=== PATIENT | female | born 1990 | race Caucasian/White ===

== ENCOUNTER 2021-03-08 21:15 | Outpatient (REF) | payer SELFPAY ==
[2021-03-08 21:51] LABS: Abs Immature Grans 0.24 10^3/uL (0.0-0.06); HCT 44.5 % (36.0-46.0); HGB 14.7 g/dL (11.2-15.7); MCH 27.4 pg (27.0-33.0); MPV 10.3 fL (8.0-11.0); Nucleated RBC 0 %; Platelet Count 283 10^3/uL (130-400); RBC 5.36 10^6/uL (3.93-5.22); RDW 14.2 % (11.7-14.6); RDW-SD 43.1 fL; WBC 11.24 10^3/uL (4.4-10.8)
[2021-03-08 22:38] LABS: ALT 981 U/L (14-59); AST 449 U/L (15-37); Albumin 3.6 g/dL (3.4-5.0); Alkaline Phosphatase 445 U/L (46-116); Anion Gap 12.1 mmol/L (3-11); BUN 12 mg/dL (7-18); CO2 24.9 mmol/L (21.0-32.0); CREATININE 0.8 mg/dL (0.55-1.02); Calcium 9.2 mg/dL (8.5-10.1); Chloride 104 mmol/L (98-107); Glucose 97 mg/dL (74-106); Lipase 106 U/L (73-393); Potassium 3.8 mmol/L (3.5-5.1); Sodium 141 mmol/L (136-145); Total Protein 7.7 g/dL (6.4-8.2)
[2021-03-08 22:40] LABS: Absolute Basophil Count 0.11 10^3/uL (0.0-0.2); Absolute Eosinophil Count 0.11 10^3/uL (0.0-0.7); Absolute Lymphocyte Count 6.52 10^3/uL (1.2-3.4); Absolute Monocyte Count 0.67 10^3/uL (0.1-0.8); Absolute Neutrophil Count 3.82 10^3/uL (1.2-6.7); Atypical Lymphocytes % 8; Bands % 2
[2021-03-08 22:41] LABS: Diff Comment Manual Differential; RBC Morphology Normal
[2021-03-12 11:04] LABS: Hepatitis A Antibody IgM Negative (Negative); Hepatitis B Core Antibody Negative (Negative); Hepatitis B surface Ag Negative (Negative); Hepatitis C Ab w Rflx HCV PCR Negative (Negative)
== END 2021-03-08 21:16 | disposition home or self-care (01) ==
LOC: LBN 21:15
PROVIDERS: Visit Provider Physician Assistant Medical
DX: R10.11 Right upper quadrant pain (principal); Z11.59 Encounter for screening for other viral diseases; Z01.84 Encounter for antibody response examination
CPT/HCPCS: 80053; 83690; 86704; 86709; 86803; 87340; 85025

== ENCOUNTER 2021-03-12 15:12 | Outpatient (REF) | payer SELFPAY ==
[2021-03-12 21:31] LABS: ALT 571 U/L (14-59); AST 221 U/L (15-37); Albumin 3.2 g/dL (3.4-5.0); Alkaline Phosphatase 424 U/L (46-116); Anion Gap 9.7 mmol/L (3-11); BUN 11 mg/dL (7-18); Bilirubin, Total 3.6 mg/dL (0.2-1.0); CO2 26.3 mmol/L (21.0-32.0); CREATININE 0.8 mg/dL (0.55-1.02); Calcium 8.9 mg/dL (8.5-10.1); Chloride 104 mmol/L (98-107); Glucose 101 mg/dL (74-106); Lipase 132 U/L (73-393); Sodium 140 mmol/L (136-145); Total Protein 7.4 g/dL (6.4-8.2)
== END 2021-03-12 15:13 | disposition home or self-care (01) ==
LOC: LBN 15:12
PROVIDERS: Visit Provider Physician Assistant Medical
DX: R74.01 Elevation of levels of liver transaminase levels (principal)
CPT/HCPCS: 80053; 83690

== ENCOUNTER 2022-11-22 14:03 | Emergency (ER) | payer SELFPAY ==
[2022-11-22 14:06] VITALS: BP 138/99; PULSE 85; RESP 18; TEMP 37; O2SAT 99
--- NOTE | 2022-11-22 14:06 | ED.GENADUL_ITS ---
Discharge Plan Disposition Patient Disposition: Home Discharge Details Clinical Impression: Immunization, tetanus-diphtheria, Laceration of left lower leg Primary Care Provider: None,None ED Provider: Roberto Bob Home Meds and New Rx's Prescriptions: No Action No Known Home Meds Discharge Instructions Additional Instructions: You were seen in the emergency department for your laceration. Your tetanus was updated. Please return to the emergency department if you develop streaking signs of infection fevers chills or any redness around your wound. For your pain please take medications as follows: 1. Take acetaminophen (Tylenol), 1,000 mg (two 500 mg tabs) every 6 hours 2. Take ibuprofen (Advil), 400 mg every 6 hours. Discharge Data Discharge Date/Time-TO BE ENTERED AT DEPARTURE: 11/22/22 15:01 Medical Decision Making This is an overall very well-appearing normothermic and not tachycardic 32-year-old female with superficial left lower extremity laceration that will allow to heal via secondary intention. No pain out of proportion to suggest necrotizing soft tissue infection. We will update patient's tetanus status. No streaking surrounding signs of cellulitis and no significant erythema so will defer prophylactic antibiotics at this point time. Patient and I discussed return indications including any fevers any worsening pain swelling or streaking signs of infection. I advised outpatient PCP follow-up as needed. I advised oral ibuprofen and acetaminophen. No preceding chest pain dizziness nor syncope so I do not feel that the patient requires ECG or labs. Given that the patient struck her leg on a metal bedpost I am not suspicious for retained foreign body so will defer plain film. Patient understood her return indications and will proceed with empiric trial of expectant outpatient management. No significant tenderness to the tibia and no significant trauma to tibia so we will defer plain films at this point time as my suspicion for acute osseous abnormality is exceedingly low. HPI General Date/Time Provider Initiated Documentation: 11/22/22 14:06 . HPI Narrative: This is a previously healthy 32-year-old female arriving via private vehicle in the setting of a left harden laceration she sustained last night. Patient reports that she was changing a bed. She was standing on some pillows and intermittently lost her balance. No preceding chest pain nausea vomiting nor dizziness. She struck her left harden on a metal frame. She came to the emergency department as she knows that her last tetanus was more than 10 years ago when she was with her daughter. She is not anticoagulated. She has been ambulatory since her injury. Related Data Home Medications Medication Instructions Recorded Confirmed Unknown [No Known Home Meds] 11/22/22 11/22/22 Allergies Allergy/AdvReac Type Severity Reaction Status Date / Time No Known Allergies Allergy Unverified 11/22/22 14:12 PFS All Active Problems (Updated 11/22/22 @ 14:33 by Roberto Bob MD) Vaginal delivery (Active 09/16/12) Immunization, tetanus-diphtheria (Acute) Laceration of left lower leg (Acute) Social History Smoking/Tobacco Use Status: Current every day Smoking risk assessment performed?: Yes Drug use: Daily Exam Narrative Exam Narrative: General: Well-appearing in no acute distress speaking in complete sentences. Head: Normocephalic, atraumatic. Eye: Extraocular eye movements intact. No conjunctival injection. No scleral icterus. Ear, nose, mouth, throat: Grossly normal inspection. Normal voice, handling secretions normally. Neck: Trachea midline. Cardiovascular: Well-perfused distal extremities. Respiratory: Nonlabored respiration. Gastrointestinal: Nondistended abdomen. Musculoskeletal: No edema. Moving all 4 extremities spontaneously. Normal lateral aspect of the patient's left lower leg approximately mid tibial level there is an approximately 2.5 cm superficial laceration that is hemostatic. No significant surrounding erythema. Laceration does not violate the subcutaneous tissue. Skin: Normal for age and race, grossly normal temperature and turgor. No acute rash. Neurologic: Alert and appropriate, no apparent acute deficits. Psychiatric: Mood and manner are appropriate. Grooming and personal hygiene are appropriate.
[2022-11-22] MEDS: Tetanus & Diphtheria Tox,ADULT 0.5 ML VIAL IM (14:55)
== END 2022-11-22 15:01 | disposition home or self-care (01) ==
PROVIDERS: Emergency Provider Emergency Medicine
DX: W22.03XA Walked into furniture, initial encounter; S81.812A Laceration without foreign body, left lower leg, initial encounter
CPT/HCPCS: 90471; 99284; 99283

== ENCOUNTER 2024-02-14 09:54 | Emergency (ER) | payer SELFPAY ==
[2024-02-14 10:00] VITALS: BP 163/98; PULSE 75; RESP 20; TEMP 36.7; O2SAT 98
--- NOTE | 2024-02-14 10:00 | DI.RAD_ITS ---
Exam(s) XR CHEST 2V PA LATERAL EXAM: XR CHEST 2V PA LATERAL CLINICAL HISTORY: cough. TECHNIQUE: 2D digital imaging was performed. COMPARISON: No exams were available for comparison FINDINGS: 2 views: Heart size is normal. The mediastinum is not widened. Lungs are clear. No infiltrates nor pleural effusions. IMPRESSION: No acute pulmonary findings. DATA REPOSITORY: RADIATION DOSE DELIVERED:
[2024-02-14 10:04] VITALS: BP 163/98; PULSE 75; RESP 20; TEMP 36.7; O2SAT 98
[2024-02-14] MEDS: Inhaler, Assist Device 1 EACH MC (10:23)
[2024-02-14] MEDS: Dexamethasone 4 MG TAB 8 MG PO (10:23)
[2024-02-14] MEDS: Albuterol HFA 8 GM 60 PUFF INH IH (10:23)
--- NOTE | 2024-02-14 10:44 | DI.VRAD_ITS ---
PROCEDURE INFORMATION: Exam: XR Chest Exam date and time: 02/14/2024 10:29 AM Age: 33 years old Clinical indication: Cough TECHNIQUE: Imaging protocol: Radiologic exam of the chest. Views: 2 views. COMPARISON: CT ABDOMEN W 03/09/2021 4:25 PM FINDINGS: Lungs: Unremarkable. No consolidation. Pleural spaces: Unremarkable. No pleural effusion. No pneumothorax. Heart/Mediastinum: Unremarkable. No cardiomegaly. Bones/joints: Mild degenerative disease of the left acromioclavicular joint. IMPRESSION: No acute cardiopulmonary process. Dictated and Authenticated by: Melo Mahoney MD. Ordering:[facility] Renzo Reed MD
--- NOTE | 2024-02-14 10:58 | ED.GENADUL_ITS ---
Discharge Plan Disposition Patient Disposition: Home Condition: Stable Discharge Details Clinical Impression: Cough, URI (upper respiratory infection), Otitis media Primary Care Provider: Unknown,Unknown ED Provider: Luiz Muller Home Meds and New Rx's Prescriptions: New amoxicillin 875 mg tablet 875 mg PO BID 5 Days Qty: 10 0RF promethazine 6.25 mg/5 mL syrup 12.5 mg PO Q6H PRN (Reason: cough) Qty: 120 0RF No Action ibuprofen 600 mg tablet 600 mg PO TID-QID PRN Discharge Instructions Instructions: Upper Respiratory Infection ED Additional Instructions: * Your COVID and flu testing are negative * You have an ear infection of the left ear, this will be treated with a ntibiotics * Use the albuterol and spacer provided every 4-6 hours as needed for cough * Prescription for cough medication has been sent to the pharmacy. This is the Phenergan syrup. It can make you sleepy which will help you get some rest HPI General Date/Time Provider Initiated Documentation: 02/14/24 09:59 . Limitations to Documentation: no limitations . Information obtained by: patient . HPI Narrative: 33-year-old female with past medical history of tobacco abuse presents for evaluation of cough and URI symptoms. Reports symptoms have been going on for the last 6 days. She states that her daughter had pneumonia about a month ago. She reports symptoms started with a sore throat but that is improved. She reports nasal congestion and ear fullness. She reports pain in her left ear. She denies any drainage from the ear. She reports a persistent dry cough nonproductive. Related Data Home Medications ?Medication ?Instructions ?Recorded ?Confirmed amoxicillin 875 mg tablet 875 mg PO BID 5 days #10 tabs 02/14/24 ibuprofen 600 mg tablet 600 mg PO TID-QID PRN 02/14/24 02/14/24 promethazine 6.25 mg/5 mL oral 12.5 mg (10 mL) PO Q6H PRN cough 02/14/24 syrup #120 mL Previous Rx's ?Medication ?Instructions ?Recorded amoxicillin 875 mg tablet 875 mg PO BID 5 days #10 tabs 02/14/24 promethazine 6.25 mg/5 mL oral 12.5 mg (10 mL) PO Q6H PRN cough 10/26/24 syrup #120 mL Allergies Allergy/AdvReac Type Severity Reaction Status Date / Time No Known Allergies Allergy Unverified 02/14/24 10:15 General Stated Complaint: RespSymp EWA: 4 Exam Narrative Exam Narrative: Review of Systems: All systems reviewed & are unremarkable except as noted in HPI and below Well-developed, no acute distress NCAT PERRL, normal conjunctiva Oropharynx without tonsillar enlargement or exudate Mild cervical adenopathy Left TM with effusion and erythema RRR no murmur Unlabored respiratory effort diminished air movement with occasional wheezes bilaterally Course Vital Signs Vital signs: Vital Signs Temperature 36.7 C 02/14/24 10:00 Pulse 75 02/14/24 10:00 Respiratory Rate 20 02/14/24 10:00 Blood Pressure 163/98 H 02/14/24 10:00 Pulse Oximetry 98 02/14/24 10:00 Temperature 36.7 C 02/14/24 10:04 Pulse 75 02/14/24 10:04 Respiratory Rate 20 02/14/24 10:04 Respiratory Effort Normal 02/14/24 10:26 Respiratory Depth Normal 02/14/24 10:26 Blood Pressure 163/98 H 02/14/24 10:04 Blood Pressure Position Sitting 02/14/24 10:04 Pulse Oximetry 98 02/14/24 10:04 Oxygen Delivery Method Room Air 02/14/24 10:04 Oxygen Flow Rate 0 02/14/24 10:00 Medical Decision Making Emergent evaluation of URI symptoms. Initial differential includes otitis media, pneumonia, reactive airway. Patient is a smoker and though she is not hypoxic or having any signs of significant respiratory distress, I will give albuterol as it think this will help her persistent dry hacking cough. Will also give a single dose of dexamethasone. She was provided with an albuterol MDI with spacer and instructions on how to use this. She does have a left otitis media and this will be treated with antibiotics. A chest x-ray was obtained to evaluate for focal consolidation. Chest x-ray was reviewed and independently interpreted: No focal consolidation, normal heart size, no pulmonary edema or pleural effusion. Will start amoxicillin for ear infection. Provided with Phenergan syrup as well to help with cough. Precautions advised. Follow-up as needed Quality:SDOH Health Related Social Needs: No Data to Display PFSH All Active Problems Otitis media (Acute) URI (upper respiratory infection) (Acute) Cough (Acute) Vaginal delivery (Active 09/16/12) Social History Smoking/Tobacco Use Status: Current every day Tobacco Type: cigarettes Smoking risk assessment performed?: Yes Alcohol Intake: current Alcohol Intake frequency: a few times a month Drug use: Daily Substance use type: marijuana PAWSS Have you Been Recently Intoxicated or Drunk Within the Last 30 days?: No Have you Ever Experienced Previous Episodes of Alcohol Withdrawal?: No Have you ever Experienced Withdrawal Seizures?: No Have you ever Experienced Delirium Tremens(DT)s?: No Have you ever undergone Alcohol Rehabilitation Treatment (i.e, inpt ot outpatient treatment programs)?: No Have you ever Experienced Blackouts?: No Have you ever Combined Alcohol with other Downers within the last 90 days?: No Have you ever Combined Alcohol with any other Substance of Abuse during the last 90 days?: No Positive Blood Alcohol level on Presentation? [PCS.BAL]: No Evidence of Increased Autonomic Activity (i.e. HR>120, tremor, sweating, agitation, nausea)?: No Result: 0
== END 2024-02-14 11:03 | disposition home or self-care (01) ==
LOC: ER 11:04
PROVIDERS: Emergency Provider Emergency Medicine
DX: J06.9 Acute upper respiratory infection, unspecified (principal); R05.9 Cough, unspecified; H66.92 Otitis media, unspecified, left ear
CPT/HCPCS: 87426; 99284; 71046; J8540

== ENCOUNTER 2025-03-24 16:48 | Emergency (ER) | payer SELFPAY ==
[2025-03-24 16:52] VITALS: BP 151/89; PULSE 94; RESP 18; TEMP 36.6; O2SAT 98
[2025-03-24 16:54] VITALS: BP 151/89; PULSE 94; RESP 18; TEMP 36.6; O2SAT 98
--- NOTE | 2025-03-24 17:17 | W.ED.GENAD ---
Discharge Plan Disposition Patient Disposition: Home Condition: Stable Discharge Details Clinical Impression: Dental infection Primary Care Provider: Unknown,Unknown ED Provider: Matthew Mcgarry Home Meds and New Rx's Prescriptions: New amoxicillin-pot clavulanate 875-125 mg tablet 1 tab PO BID Qty: 20 0RF No Action ibuprofen 600 mg tablet 600 mg PO TID-QID PRN Discharge Instructions Instructions: Tooth Abscess ED Additional Instructions: Augmentin as directed. Jruf-tjh-[id number] medication such as Tylenol and/or Motrin, Orajel, salt water gargle swish and spit as tolerated. Cool and/or warm compresses every 2 hours for 20 minutes. Please watch for new or worsening symptoms and return immediately to the ER. Otherwise using the dental list provided, please contact all of the local dentist tomorrow and follow-up with the first available appointment. It is imperative that you have dental work performed. We also discussed smoking cessation. Stand Alone Forms: Portal Information HPI General Mode of arrival: ambulatory. Date/Time Provider Initiated Documentation: 03/24/25 17:04. Limitations to Documentation: no limitations. Information obtained by: patient. History of Present Illness 34 year old F presents to the emergency department with the chief complaint of Dental pain/swelling, described as moderate, with intensity rated at 6. Quality is described as aching, and is localized to the mouth. Patient reports no radiation. Patient started experiencing this year(s) (Intermittent 1 year, returned few days ago) and it has been constant. other things that improve symptom(s), (Orajel) No exacerbating factors reported . Patient notes no other symptoms.. Patient did receive the following treatments prior to arrival, other (Orajel) Related Data Home Medications ?Medication ?Instructions ?Recorded ?Confirmed ibuprofen 600 mg tablet 600 mg PO TID-QID PRN 02/14/24 03/24/25 amoxicillin 875 mg-potassium 1 tab PO BID #20 tabs 03/24/25 clavulanate 125 mg tablet Previous Rx's ?Medication ?Instructions ?Recorded amoxicillin 875 mg-potassium 1 tab PO BID #20 tabs 03/24/25 clavulanate 125 mg tablet Allergies Allergy/AdvReac Type Severity Reaction Status Date / Time No Known Allergies Allergy Unverified 03/24/25 16:53 General Stated Complaint: DentalOral EWA: 4 Review of Systems Constitutional Constitutional: Denies fever(s) and Denies headache(s) ENT Ears, Nose, Mouth, and Throat: Denies otalgia, Denies headache(s), Reports mouth pain, Denies neck pain, Denies sore throat and Denies throat swelling Cardiovascular Cardiovascular: Denies chest pain and Denies dyspnea Respiratory Respiratory: Denies dyspnea Gastrointestinal Gastrointestinal: Denies abdominal pain, Denies nausea and Denies vomiting Musculoskeletal Musculoskeletal: Denies neck pain Integumentary/Breasts Skin/Breast: Denies rash Neurologic Neurologic: Denies headache(s) Allergic/Immunologic Allergic/Immunologic: Denies throat swelling Exam Const General: cooperative, healthy appearing, comfortable and no acute distress Orientation: alert and awake HENMT Head: normal to inspection, normocephalic and atraumatic Ears: external ears normal, TM's normal bilaterally and EAC's normal Face images:  1. Swelling, mild tenderness. Mild induration. No erythema or fluctuance. No pointing abscess. Mouth: lip normal, tongue normal, oropharynx normal, moist mucous membranes and moist mucous membranes abnormal Teeth and gingiva: caries and poor dentition Teeth image:  1. Dental fracture. Mild local gingival erythema no pointing abscess or drainage. Tenderness to tooth 19. No trismus. Throat: posterior oropharynx normal, uvula midline and no peritonsillar masses Eyes General: appearance normal, both eyes and all related structures Conjunctivae: conjunctivae normal Neck Neck: normal visual inspection, full ROM, no lymphadenopathy, no meningeal signs, trachea midline and supple Resp Effort & Inspection: normal respiratory effort and able to speak in complete sentences Auscultation: clear to auscultation bilaterally Cardio Rate: regular rate Rhythm: regular rhythm Skin General skin exam: no rashes or lesions noted Neuro General: patient alert, patient awake, moves all extremities and no focal motor deficits Sensory Exam: no sensory deficits noted Psych Appearance: grossly normal Mental Status: mental status grossly normal Course Vital Signs Vital signs: Vital Signs Temperature 36.6 C 03/24/25 16:52 Pulse 94 H 03/24/25 16:52 Respiratory Rate 18 03/24/25 16:52 Blood Pressure 151/89 H 03/24/25 16:52 Pulse Oximetry 98 03/24/25 16:52 Temperature 36.6 C 03/24/25 16:54 Pulse 94 H 12/04/25 16:54 Respiratory Rate 18 03/24/25 16:54 Blood Pressure 151/89 H 03/24/25 16:54 Pulse Oximetry 98 03/24/25 16:54 Pain Level 4 03/24/25 16:54 Medical Decision Making 34-year-old female, smokes about a pack a day, known poor dentition, presents for left-sided facial swelling and dental pain over the past couple of days. This has happened multiple times over the past year but not to this extent, hoping for antibiotics. Denies any other symptoms such as headache, neck pain, difficulty speaking or swallowing, fever, trismus, ect. Clinically she has left-sided facial swelling without trismus, peritonsillar swelling or mass. She appears well, nontoxic, has full range of motion of her neck. No lymphadenopathy. Speaks in full sentences and manages her secretions without difficulty. Patient did see a dentist about a year ago but does not have dental care. We discussed smoking cessation. We discussed treating her discomfort with cool and/or warm compresses, [id number] medication such as Tylenol, Motrin, Orajel, excetra. Discussed red flag signs and symptoms to watch for and to return immediately. Otherwise we will provide a single dose of Augmentin now and provide her with a prescription. Will also provide her with the local dental list. Recommend contacting everyone on that list and following up at next available appointment. Again encouraged to watch for new or worsening symptoms and return immediately. Standard discharge and return precautions were provided. Patient understands, is agreeable to this plan, and has no additional questions or concerns upon discharge. This documentation was generated using [employer] dictation system, please disregard any oddities of phrase or misspellings. Medical Records Medical records reviewed: Yes I reviewed the patient's medical records. PFSH All Active Problems (Updated 03/24/25 @ 17:39 by IVELISSE Jensen) Dental infection (Acute) Vaginal delivery (Active 09/16/12) Social History Smoking/Tobacco Use Status: Current every day Tobacco Type: cigarettes Smoking risk assessment performed?: Yes Alcohol Intake: current Alcohol Intake frequency: holidays/special occasions only Alcohol type: hard liquor Drug use: Daily Substance use type: marijuana
[2025-03-24] MEDS: Amoxicillin 875/Clav. 125 TAB PO (17:28)
== END 2025-03-24 18:29 | disposition home or self-care (01) ==
LOC: ER 17:48
PROVIDERS: Emergency Provider Physician Assistant
DX: K04.7 Periapical abscess without sinus (principal)
CPT/HCPCS: 99283 ×2

== ENCOUNTER 2025-03-26 12:06 | Emergency (ER) | payer SELFPAY ==
[2025-03-26 12:09] VITALS: BP 146/96; PULSE 102; RESP 18; TEMP 36.7; O2SAT 98
--- NOTE | 2025-03-26 12:21 | DI.CT_ITS ---
Exam(s) CT NECK W EXAM: CT NECK W INDICATION: L/lower premolar infection, c/f fatuma/abscess. COMPARISON: No exams were available for comparison TECHNIQUE: IV contrast Omnipaque 350-100 mL FINDINGS: VISUALIZED PARANASAL SINUSES: There is a retention cyst in the floor left maxillary sinus, posteriorly. There are no fluid levels within the visualized paranasal sinuses. NASOPHARYNX: Unremarkable ORODENTAL: On the lower left mandible there significant erosion around tooth 20(2nd bicuspid) with erosion-dehiscence of the buccal cortex at this level and in addition there is an adjacent peripherally enhancing abscess involving both the buccal and lingual side (predominately buccal side), this ring-enhancing abscess measuring 2.7 cm AP by 2.5 cm wide by 2 cm craniocaudal. There is also adjacent subcutaneous fat stranding and mild skin thickening, most probably overlying cellulitis. There are multiple enhancing reactive sub platysmal lymph nodes measuring up to 1.5 x 1.2 cm. OROPHARYNX: Unremarkable. No masses evident. HYPOPHARYNX: Unremarkable. Valleculae and epiglottis and aryepiglottic folds appear normal. VOCAL CORDS: Unremarkable. No masses evident. Subglottic airway appears unremarkable. THYROID GLAND: Unremarkable. Normal size and no obvious nodules. SALIVARY GLANDS: Unremarkable. No significant findings in the parotid and submandibular glands. VISUALIZED LUNG APICES: No significant findings. IMPRESSION: 1. There is periapical dental disease involving left side tooth 20. In the mandible with dehiscence of the buccal cortex and in adjacent abscess involving predominately the buccal side (but with also a smaller lingular all side component), this abscess measuring approximately 2.7 x 2.5 x 2.0 cm. There is overlying subcutaneous fat stranding consistent with an element of ipsilateral facial cellulitis. 2. There is reactive lymphadenopathy as described above Preliminary virtual Radiology report was reviewed RADIATION DOSE DELIVERED: 326.51mGy.cm Total DLP DATA REPOSITORY: All CT scans at this facility are submitted to the National Radiology Data Registry (NRDR) Dose Index Registry (DIR) with the [employer] ([employer]). RADIATION OPTIMIZATION: All CT scans at this facility use at least one of these dose optimization techniques: automated exposure control; mA and/or kV adjustment per patient size (includes targeted exams where dose is matched to clinical indication); or iterative reconstruction.
--- NOTE | 2025-03-26 12:29 | W.ED.GENAD ---
Discharge Plan Disposition Patient Disposition: Home Discharge Details Clinical Impression: Dental infection Primary Care Provider: None,None ED Provider: Grant Johnson Home Meds and New Rx's Prescriptions: New acetaminophen [Tylenol] 325 mg tablet 975 mg PO ONCE PRNQty: 60 0RF ibuprofen 600 mg tablet 600 mg PO Q6H PRNQty: 30 0RF clindamycin HCl [Cleocin HCl] 300 mg capsule 300 mg PO Q6H Qty: 40 0RF oxycodone 5 mg tablet 5 mg PO Q4H PRNQty: 14 0RF No Action ibuprofen 600 mg tablet 600 mg PO TID-QID PRN amoxicillin-pot clavulanate 875-125 mg tablet 1 tab PO BID Qty: 20 0RF Discharge Instructions Instructions: Tooth Abscess ED Additional Instructions: As discussed, your symptoms will likely not improve until you have a tooth extraction. We do not have the capabilities to perform this at our institution. I will also prescribe you another antibiotic, please continue to take the previously prescribed Augmentin as well as the new clindamycin to help temporize your infection, however, it is imperative that you follow-up with a dentist. You have also been supplied with breakthrough pain medication in the form of oxycodone 5 mg tablet, please take this when the pain is severe, but continue to use Tylenol and ibuprofen to help manage your pain at home. Please return emergency department if you develop fever, inability to open your mouth, difficulty breathing or any other new or concerning symptoms. Stand Alone Forms: Portal Information HPI General Date/Time Provider Initiated Documentation: 03/26/25 12:16. HPI Narrative: MDM/Narrative: 34-year-old female presents for evaluation of left-sided dental pain for associated left neck and facial swelling. This is the patient's second evaluation in 2 days, during her last evaluation was started on Augmentin with worsening symptoms. Vital signs notable for tachycardia, exam shows dental caries in the left premolar through tenderness with surrounding edema, no obvious apical abscess however patient with tenderness to percussion to these teeth as well as a significant amount of swelling and tenderness along the left jawline extending into the left lateral neck. Patient without trismus or stridor at this time. Given elevated heart rate and failure on outpatient antibiotics, high concern for possible deep space of the neck infection/abscess formation. Will obtain screening labs and CT to assess for any possible required surgical emergent intervention. Patient also reports having taken Tylenol and ibuprofen prior to arrival as such we will treat pain with morphine and provide fluids to improve heart rate. ED course: CT imaging shows odontogenic abscess without extension to the deep space of the neck or floor of the mouth. At bedside I made multiple attempts with 11 blade scalpel as well as 18-gauge needle to drain the abscess however unable to express any purulent material from the site. Plan of care discussed with the patient, she was provided with a list of multiple dentists in the area and was instructed that she requires a follow-up with one of the dentist for tooth extraction as we are unable to provide the service here. Although initial vital signs coupled with a leukocytosis on her CBC were abnoraml, her lactic acid was normal and heart rate has improved with fluids and she does not meet criteria for emergent hospitalization or transfer. To further temporize the patient given is the weekend, will also start her on clindamycin, and provide her with 14 tablets of oxycodone 5 mg p.o. to take as needed and hope she can follow-up with her dentist early this coming week. Instructed to return to the emergency department should she develop worsening pain fevers, inability to open her mouth, tolerate secretions eat or drink or difficulty breathing. Disposition: Home HPI: 34-year-old female with past medical history notable for smoking, presents for evaluation of left lower dental pain with neck swelling. Patient was evaluated emergency department 2 days ago for similar complaints at that time was started on Augmentin. She notes that her pain has worsened since onset, although she denies any associated fever, trismus, or inability to tolerate secretions eat or drink. She notes the pain is severe and she is unable to sleep. Has been unable to secure dental follow-up. ROS: Negative besides as mentioned above Exam: Gen: A&O, tearful appears in painful distress HEENT: Multiple dental caries along the left lower premolars, with surrounding gingival inflammation, there is edema along the left side of the mandible extending to the angle of the jaw, and down into the neck soft tissue, this entire area is slightly erythematous and tender to palpation no obvious fluctuance on examination. Neck: Supple, full range of motion, no observable masses, No meningeal sign. Lungs: No Respiratory distress. CV: RRR, no edema. Abdomen: Soft, nondistended, No rebound tenderness. MSK: No joint swelling, no redness. Skin: No rashes, petechiae, lesions. Normal color per patient. Neuro: Normal Gait, Grossly intact. Psych: Appropriate for situation. Labs: Laboratory Tests Range/Units 03/26/25 13:05 WBC (4.4-10.8) 10^3/uL 14.13 H RBC (3.93-5.22) 10^6/uL 5.19 Hgb (11.2-15.7) g/dL 13.7 Hct (36.0-46.0) % 41.5 MCV (80-95) fL 80 MCH (27.0-33.0) pg 26.4 L MCHC (32.0-36.0) % 33.0 RDW (11.7-14.6) % 13.2 Plt Count (130-400) 10^3/uL 456 H MPV (8.0-11.0) fL 9.0 Immature Gran % % 0.4 Neutrophils % % 66.0 Lymphocytes % % 25.0 Monocytes % % 6.9 Eosinophils % % 1.3 Basophils % % 0.4 Nucleated RBC % (0.0-0.3) % 0.0 Absolute Neutrophils (1.2-6.7) 10^3/uL 9.33 H Absolute Lymphocytes (1.2-3.4) 10^3/uL 3.53 H Absolute Monocytes (0.1-0.8) 10^3/uL 0.97 H Absolute Eosinophils (0.0-0.7) 10^3/uL 0.18 Absolute Basophils (0.0-0.2) 10^3/uL 0.06 VBG Lactate (<or=2.0) mmol/L 0.8 Sodium (136-145) mmol/L 139 Potassium (3.5-5.1) mmol/L 3.7 Chloride (98-107) mmol/L 108 H Carbon Dioxide (20.0-31.0) mmol/L 23.1 Anion Gap (3-11) mmol/L 7.9 BUN (9-23) mg/dL 14 Creatinine (0.55-1.02) mg/dL 0.76 Est GFR (CKD-EPI 2020) (mL/min/1.73m2) 85.93 Glucose (74-106) mg/dL 86 Calcium (8.3-10.6) mg/dL 8.8 Total Bilirubin (0.2-1.2) mg/dL 0.30 AST (<34) U/L 25 ALT (10-49) U/L 47 Alkaline Phosphatase (46-116) U/L 91 Total Protein (5.7-8.2) g/dL 7.6 Albumin (3.2-5.0) g/dL 4.4 Radiology: PROCEDURE INFORMATION: Exam: CT Neck With Contrast Exam date and time: 03/26/2025 12:44 PM Age: 34 years old Clinical indication: Pain; Other: L/lower premolar infection, c/f fatuma/abscess TECHNIQUE: Imaging protocol: Computed tomography of the neck with contrast. Contrast material: OMNIPAQUE 350; Contrast volume: 100 ml; Contrast route: INTRAVENOUS (IV); COMPARISON: CR XR CHEST 2V PA LATERAL 02/14/2024 10:29 AM FINDINGS: Brain: The visualized aspect of the brain is unremarkable Paranasal sinuses: There is no significant paranasal sinus opacification or fluid level. Small retention cyst is seen inferiorly in the left maxillary antrum. Salivary glands: Unremarkable. There are symmetric in size. Teeth: Dental disease is noted particularly involving tooth number 20 where there is erosion, breakthrough of the buccal cortex. There is a small dental/ odontogenic abscess involving the buccal soft tissues adjacent to the bony erosion at tooth 20. This measures approximately 16 x 5 mm in AP transverse diameter as measured on series 3, image 23. There is no evidence of a discrete or drainable collection involving the floor of the mouth. There is some mild inflammation, stranding in the subcutaneous soft tissues adjacent to the left mandible suspicious for mild left facial cellulitis. Pharynx: The pharyngeal tonsils are symmetric. There is no evidence of a discrete or drainable tonsillar or peritonsillar collection or abscess. Larynx: Epiglottis, larynx are unremarkable Thyroid: Thyroid is unremarkable Trachea: There is no significant tracheal narrowing Lungs: Visualized lung apices are clear OSEI CEE Preliminary Radiology Report SEMICONDUCTOR LAB TECHNICIAN (QA) DISCREPANCY? If there is a discrepancy between the preliminary and final interpretation, please notify [facility] via [email or web address]. If you do not have access to our QA portal, call our QA team at [phone] CONFIDENTIALITY STATEMENT This report is intended only for the use of the referring physician, and only in accordance with law, If you received this in error, call [phone] Page 2 of 2 Lymph nodes: There are small bilateral cervical nodes, the findings likely represent reactive adenopathy. Nodes are most prominent at level 2. Multiple small level 1 lymph nodes are also noted Vasculature: No significant vascular abnormality is identified Bones/joints: Dental disease, no acute findings in the cervical spine. Soft tissues: See Teeth finding. IMPRESSION: 1. Dental disease particularly involving tooth 20. There is breakthrough of the buccal cortex and adjacent small collection consistent with dental/odontogenic abscess. There is mild stranding in the adjacent subcutaneous fat which may represent mild facial cellulitis. There is no evidence of a discrete or drainable collection involving the floor of the mouth. 2. Small cervical nodes are consistent with reactive adenopathy. Thank you for allowing us to participate in the care of your patient. Dictated and Authenticated by: Olya Matute MD Related Data Home Medications ?Medication ?Instructions ?Recorded ?Confirmed ibuprofen 600 mg tablet 600 mg PO TID-QID PRN 02/14/24 03/26/25 amoxicillin 875 mg-potassium 1 tab PO BID #20 tabs 03/24/25 03/26/25 clavulanate 125 mg tablet acetaminophen 325 mg tablet 975 mg (3 x 325 mg) PO ONCE PRN 03/26/25 (Tylenol) #60 tabs clindamycin HCl 300 mg capsule 300 mg PO Q6H #40 caps 03/26/25 (Cleocin HCl) ibuprofen 600 mg tablet 600 mg PO Q6H PRN #30 tabs 03/26/25 oxycodone 5 mg tablet 5 mg PO Q4H PRN #14 tabs 03/26/25 Previous Rx's ?Medication ?Instructions ?Recorded amoxicillin 875 mg-potassium 1 tab PO BID #20 tabs 03/24/25 clavulanate 125 mg tablet acetaminophen 325 mg tablet 975 mg (3 x 325 mg) PO ONCE PRN 03/26/25 (Tylenol) #60 tabs clindamycin HCl 300 mg capsule 300 mg PO Q6H #40 caps 03/26/25 (Cleocin HCl) ibuprofen 600 mg tablet 600 mg PO Q6H PRN #30 tabs 03/26/25 oxycodone 5 mg tablet 5 mg PO Q4H PRN #14 tabs 03/26/25 Allergies Allergy/AdvReac Type Severity Reaction Status Date / Time No Known Allergies Allergy Unverified 03/26/25 12:11 General Stated Complaint: DentalOral EWA: 4 Course Vital Signs Vital signs: Vital Signs Temperature 36.7 C 03/26/25 12:09 Pulse 102 H 03/26/25 12:09 Respiratory Rate 18 03/26/25 12:09 Blood Pressure 146/96 H 03/26/25 12:09 Pulse Oximetry 98 03/26/25 12:09 Temperature 36.7 C 03/26/25 12:09 Pulse 102 H 03/26/25 12:09 Respiratory Rate 18 03/26/25 12:09 Blood Pressure 146/96 H 03/26/25 12:09 Pulse Oximetry 98 03/26/25 12:09 Oxygen Delivery Method Room Air 03/26/25 12:09 Oxygen Flow Rate 0 03/26/25 12:09 Procedure Abscess Drainage Date of Procedure: 03/26/25 Time of Procedure: 15:02 Provider that performed the procedure: Grant Johnson Patient Consented: Verbally Pre Procedure Medication: Midazolam Amount of Pre-Medication(mg): 1 Location of Exam: Oral Complications: Other (Minor bleeding) Procedure Description Note: A #11 blade scalpel was used to make a total of 4 incisions around the area of maximum palpable fluctuance in the buccal mucose adjacent to Tooth #20 (as directed by CT imaging). With bloody return. Then an 18G needle was inserted to area until alveolar bone was contact with minimal bloody return with aspiration. PFSH All Active Problems (Updated 03/26/25 @ 15:17 by Grant Johnson MD) Dental infection (Acute) Vaginal delivery (Active 09/16/12) Social History Smoking/Tobacco Use Status: Current every day Tobacco Type: cigarettes Smoking risk assessment performed?: Yes Alcohol Intake: current Alcohol Intake frequency: holidays/special occasions only Alcohol type: hard liquor Drug use: Daily Substance use type: marijuana POCUS Exam (ED) Limited Soft Tissue Exam PROVIDER THAT PERFORMED THE STUDY: Grant Johnson
[2025-03-26] MEDS: Normal Saline Flush 10 ML SYR IVP (12:40)
[2025-03-26] MEDS: Normal Saline - Diluent 50 ML VIAL IJ (13:12)
[2025-03-26] MEDS: Omnipaque 350 MG/ML 100 ML BTL IJ (13:13)
[2025-03-26 13:18] LABS: Abs Immature Grans 0.06 10^3/uL (0.0-0.06); HCT 41.5 % (36.0-46.0); HGB 13.7 g/dL (11.2-15.7); Immature Grans % 0.4 %; MCH 26.4 pg (27.0-33.0); MCHC 33.0 % (32.0-36.0); MCV 80 fL (80-95); MPV 9.0 fL (8.0-11.0); Platelet Count 456 10^3/uL (130-400); RBC 5.19 10^6/uL (3.93-5.22); RDW 13.2 % (11.7-14.6); RDW-SD 38.5 fL; WBC 14.13 10^3/uL (4.4-10.8)
[2025-03-26] MEDS: Normal Saline 1,000 ML 1000 ML IV (13:24)
[2025-03-26] MEDS: MORPHine 10 MG/ML VIAL 8 MG IVP ×2 (13:25→14:46)
[2025-03-26 13:30] VITALS: BP 146/96; PULSE 102; RESP 18; TEMP 36.7; O2SAT 98
[2025-03-26 13:42] LABS: ALT 47 U/L (10-49); AST 25 U/L (<34); Albumin 4.4 g/dL (3.2-5.0); Alkaline Phosphatase 91 U/L (46-116); Anion Gap 7.9 mmol/L (3-11); BUN 14 mg/dL (9-23); Bilirubin, Total 0.30 mg/dL (0.2-1.2); CO2 23.1 mmol/L (20.0-31.0); Calcium 8.8 mg/dL (8.3-10.6); Chloride 108 mmol/L (98-107); Glucose 86 mg/dL (74-106); Potassium 3.7 mmol/L (3.5-5.1); Sodium 139 mmol/L (136-145); Total Protein 7.6 g/dL (5.7-8.2)
[2025-03-26] MEDS: Lidocaine 1% Pres-Free W/EPI 1/200,000 30 ML VIAL IJ (14:09)
[2025-03-26] MEDS: Ondansetron 4 MG/2 ML VIAL IVP (14:10)
--- NOTE | 2025-03-26 14:11 | DI.VRAD_ITS ---
PROCEDURE INFORMATION: Exam: CT Neck With Contrast Exam date and time: 03/26/2025 12:44 PM Age: 34 years old Clinical indication: Pain; Other: L/lower premolar infection, c/f fatuma/abscess TECHNIQUE: Imaging protocol: Computed tomography of the neck with contrast. Contrast material: OMNIPAQUE 350; Contrast volume: 100 ml; Contrast route: INTRAVENOUS (IV); COMPARISON: CR XR CHEST 2V PA LATERAL 02/14/2024 10:29 AM FINDINGS: Brain: The visualized aspect of the brain is unremarkable Paranasal sinuses: There is no significant paranasal sinus opacification or fluid level. Small retention cyst is seen inferiorly in the left maxillary antrum. Salivary glands: Unremarkable. There are symmetric in size. Teeth: Dental disease is noted particularly involving tooth number 20 where there is erosion, breakthrough of the buccal cortex. There is a small dental/ odontogenic abscess involving the buccal soft tissues adjacent to the bony erosion at tooth 20. This measures approximately 16 x 5 mm in AP transverse diameter as measured on series 3, image 23. There is no evidence of a discrete or drainable collection involving the floor of the mouth. There is some mild inflammation, stranding in the subcutaneous soft tissues adjacent to the left mandible suspicious for mild left facial cellulitis. Pharynx: The pharyngeal tonsils are symmetric. There is no evidence of a discrete or drainable tonsillar or peritonsillar collection or abscess. Larynx: Epiglottis, larynx are unremarkable Thyroid: Thyroid is unremarkable Trachea: There is no significant tracheal narrowing Lungs: Visualized lung apices are clear Lymph nodes: There are small bilateral cervical nodes, the findings likely represent reactive adenopathy. Nodes are most prominent at level 2. Multiple small level 1 lymph nodes are also noted Vasculature: No significant vascular abnormality is identified Bones/joints: Dental disease, no acute findings in the cervical spine. Soft tissues: See Teeth finding. IMPRESSION: 1. Dental disease particularly involving tooth 20. There is breakthrough of the buccal cortex and adjacent small collection consistent with dental/odontogenic abscess. There is mild stranding in the adjacent subcutaneous fat which may represent mild facial cellulitis. There is no evidence of a discrete or drainable collection involving the floor of the mouth. 2. Small cervical nodes are consistent with reactive adenopathy. Dictated and Authenticated by: Olya Matute MD. Orderin Alex Burns MD
[2025-03-26] MEDS: Midazolam 2 MG/2 ML VIAL 1 MG IVP (14:46)
[2025-03-26] MEDS: oxyCODONE 10 MG TAB PO (15:10)
[2025-03-26 15:13] VITALS: BP 176/100; PULSE 91; RESP 18; O2SAT 99
[2025-03-26] MEDS: ACETAMINOPHEN 1,000 MG/100 ML BAG 400 MG IVPB (15:32)
[2025-03-26] MEDS: Ketorolac 15 MG/ML VIAL IVP (15:32)
== END 2025-03-26 15:23 | disposition home or self-care (01) ==
PROVIDERS: Emergency Provider General Practice
DX: K04.7 Periapical abscess without sinus; R22.1 Localized swelling, mass and lump, neck; R68.84 Jaw pain
CPT/HCPCS: 41800; 70491; 80053; 96361; 96374; 96375; 96376; 99285; 83605; 85025; 99284; J0131; J1885; J2004; J2250; J2270; J2405; J3490